=== PATIENT | female | born 1970 ===

== ENCOUNTER 2017-10-21 15:44 | Emergency (ER) | payer MEDICARE, OTHER ==
[2017-10-21 18:00] LABS: INR 1.1; PARTIAL THROMBOPLASTIN TIME 32 SECONDS (21-34); PROTHROMBIN TIME 12.1 SECONDS (9.7-12.2)
[2017-10-21 18:01] LABS: BASO % 0.5 % (0.0-2.0); EOS # 0.2 K/uL (0.0-0.7); EOS % 3.8 % (0.0-4.0); HEMOGLOBIN 11.8 g/dL (11.0-16.0); LYMPH % 19.8 % (20.0-40.0); MEAN CELL VOLUME 73.3 fL (81.0-99.0); MEAN CORPUSCULAR HGB CONC 32.7 g/dL (33.0-37.0); MEAN PLATELET VOLUME 9.6 fL (7.2-11.7); MONO # 0.3 K/uL (0.0-0.8); MONO % 5.9 % (0.0-10.0); NEUT # 3.5 K/uL (1.8-7.0); NRBC % 0.1 % (0.0-2.0); RBC 4.93 Mil/uL (3.80-5.20); RED CELL DISTRIBUTION WIDTH 15.7 % (11.5-14.5)
[2017-10-21 18:05] LABS: D DIMER < 200 ng/mlDDU (0-243)
[2017-10-21 18:09] LABS: ALBUMIN 4.5 g/dL (3.5-5.0); ALT/SGPT 26 U/L (9-52); AST/SGOT 25 U/L (14-36); BLOOD UREA NITROGEN 25 mg/dL (7-17); CALCIUM 9.7 mg/dl (8.6-10.4); GFR AFRICAN-AMERICAN > 60; GFR NON-AFRICAN AMERICAN > 60
[2017-10-21] MEDS ORDERED: Enoxaparin 80 mg Syringe SC STA (18:11)
--- NOTE | 2017-10-21 18:13 | RAD ---
HISTORY: chest pain COMPARISON: None available. TECHNIQUE: Chest, one view. FINDINGS: Examination limited by habitus. LUNGS: No focal consolidation. Please note that chest x-ray has limited sensitivity for the detection of pulmonary masses. PLEURA: No significant pleural effusion identified. No definite pneumothorax . CARDIOVASCULAR: Median sternotomy wires. Cardiomegaly. Atherosclerotic calcifications of the aorta. OSSEOUS STRUCTURES: No acute osseous abnormality identified. VISUALIZED UPPER ABDOMEN: Unremarkable. OTHER FINDINGS: None. IMPRESSION: Cardiomegaly. Median sternotomy wires.
[2017-10-21 18:19] LABS: B-TYPE NATRIURETIC PEPTIDE 500 pg/mL (0-450)
[2017-10-21] MEDS ORDERED: Morphine 4 MG/ML VIAL ONE ×2 (18:48→20:27)
[2017-10-21] MEDS ORDERED: Enoxaparin 80 mg Syringe ONE (18:49)
[2017-10-21] MEDS ORDERED: DiphenhydrAMINE 50 mg/ml Inj IVP STA (19:23)
--- NOTE | 2017-10-21 20:18 | C.PDOC ---
Time Seen by Provider: 10/21/17 17:16 Chief Complaint (Nursing): Chest Pain History Per: Patient Onset/Duration Of Symptoms: Hrs (4), Sudden Onset Current Symptoms Are (Timing): Still Present Severity: Moderate Quality: "Pain" Associated Symptoms: Nausea, Dyspnea Modifying Factors: Other Indicated Below Alleviating Factors: None Additional History Per: Prior Records Past Medical History Reviewed: Historical Data, Nursing Documentation, Vital Signs Vital Signs: Last Vital Signs Temp 97.7 F 10/21/17 16:05 Pulse 87 10/21/17 18:51 Resp 16 10/21/17 18:51 BP 180/101 H 10/21/17 18:51 Pulse Ox 99 10/21/17 18:51 - Medical History PMH: CHF, Diabetes, HTN, Hypothyroidism Other PMH: Lupus. Pulmonary hypertension. Surgical History: Cholecystectomy, Coronary Stent (X2) Other Surgeries: Heart valve repair Family History: States: Unknown Family Hx - Social History Hx Alcohol Use: No Hx Substance Use: No - Immunization History Hx Tetanus Toxoid Vaccination: No Hx Influenza Vaccination: No Hx Pneumococcal Vaccination: No Review Of Systems Except As Marked, All Systems Reviewed And Found Negative. Constitutional: Negative for: Fever, Weakness Cardiovascular: Positive for: Chest Pain Respiratory: Negative for: Hemoptysis Gastrointestinal: Negative for: Vomiting, Abdominal Pain Genitourinary: Negative for: Dysuria Musculoskeletal: Negative for: Neck Pain, Back Pain Skin: Negative for: Rash Neurological: Negative for: Weakness, Numbness Physical Exam - Physical Exam Appears: Non-toxic Skin: Normal Color, Warm, Dry Head: Atraumatic, Normacephalic Eye(s): bilateral: PERRL, EOMI Neck: Normal ROM, Supple Cardiovascular: Rhythm Regular Respiratory: Normal Breath Sounds, No Accessory Muscle Use Gastrointestinal/Abdominal: Soft, No Tenderness Back: No CVA Tenderness Extremity: Normal ROM, No Pedal Edema Neurological/Psych: Oriented x3, Normal Motor, Normal Sensation ED Course And Treatment - Laboratory Results Result Diagrams: 10/21/17 17:43 10/21/17 17:43 Lab Interpretation: No Acute Changes ECG: Interpreted By Me, Viewed By Me ECG Rhythm: Sinus Rhythm, R BBB (incomplete), Nonspecific Changes Rate From EC O2 Sat by Pulse Oximetry: 99 Pulse Ox Interpretation: Normal - Radiology CXR: Viewed By Me, Read By Radiologist CXR Interpretation: Yes: No Acute Disease, Cardiomegaly Progress - Interventions Interventions:: Observation, Oxygen - Medications Administered Oral: Other (Plavix) Subcutaneous: other (Lovenox) Intravenous: Opiate - Data Reviewed Data Reviewed: Lab, Diagnostic imaging, EKG, Old records - Patient Status Patient status: Partially improved - Critical Care Citical Care: Excluding Proc Time Critical Care Time: 45 minutes - Continuity of Care Discussed patient case with:: Patient, ED Nurse, On-call PMD-pt unassigned Disposition Discussed With : Andrew Chan Comment: He accepted pt on his service. Doctor Will See Patient In The: Hospital Counseled Patient/Family Regarding: Studies Performed, Diagnosis - Disposition Disposition: HOSPITALIZED Disposition Time: 20:22 Condition: FAIR - Clinical Impression Clinical Impression: Acute chest pain
[2017-10-21] MEDS ORDERED: DiphenhydrAMINE 50 mg/ml Inj ONE (20:26)
[2017-10-21 20:39] VITALS: RESP 18
[2017-10-21] MEDS ORDERED: Enalaprilat 2.5 MG/2 ML IV ONE (20:46)
[2017-10-21] MEDS ORDERED: Enalaprilat 2.5 MG/2 ML ONE (21:10)
[2017-10-21 22:23] VITALS: BP 149/92; PULSE 78; TEMP 98; O2SAT 97
[2017-10-22] MEDS ORDERED: LEVOTHYROXINE SODIUM 0.3 MG PO SCH (06:30)
[2017-10-22] MEDS ORDERED: (Novolin R) Insulin Human Regular 100 units/ml vial SC SCH (07:30)
[2017-10-22] MEDS ORDERED: SILDENAFIL CITRATE 25 MG PO SCH (10:00)
[2017-10-22] MEDS ORDERED: Enoxaparin 40 mg Syringe SC SCH (10:00)
--- NOTE | 2017-10-22 11:51 | CARD ---
APPROVED REPORT EKG Measurement Heart [id number] <Conclusion> Normal sinus rhythm Incomplete right bundle branch block Borderline ECG
== END 2017-10-21 22:28 | disposition left against medical advice (07) ==
LOC: C.ER 15:44 → C.9E 20:22 → UNDOADMOB 20:22 → UNDODISOB 22:28 → C.ER 22:28
DX: R07.9 Chest pain, unspecified (principal); I11.0 Hypertensive heart disease with heart failure; I50.9 Heart failure, unspecified; E11.9 Type 2 diabetes mellitus without complications
CPT/HCPCS: 71045; 80053; 83880; 84484; 85025; 85378; 85610; 85730; 93005; 96372; 96374; 96375; 96376; 99285; J1200; J1650; J2270